=== PATIENT | female | born 1980 | race Caucasian/White ===

== ENCOUNTER 2023-03-07 07:46 | Outpatient (CLI) | payer OTHER, SELFPAY ==
--- NOTE | ~2023-03-07 | MM_ITS ---
EXAMINATION: MM screening loy BI w filipe HISTORY: Screening mammogram TECHNIQUE: Craniocaudal and mediolateral oblique 3-D tomosynthesis images were obtained and synthetic 2-D images were generated. CAD analysis was submitted and interpreted. COMPARISON: 03/17/2019 diagnostic right mammogram and limited right breast ultrasound examination, re ported negative BREAST PARENCHYMAL COMPOSITION: There are scattered areas of fibroglandular density. FINDINGS: A circumscribed 5.4 x 9 mm opacity is noted in the outer mid to lower right breast. Diagnos tic right mammogram and right breast ultrasound examination are recommended. Otherwise no suspicious mass, architectural distortion, malignant calcification, skin thickening or r etraction of either breast or other significant new or developing density of the right breast is note d. IMPRESSION: 1. New outer mid to lower right breast mass 2. Diagnostic right mammogram and right breast ultrasound examination are recommended BI-RADS Category 0: Incomplete: Needs additional imaging evaluation. Reviewed, dictated and finalized at location A. IMPRESSION: 1. New outer mid to lower right breast mass 2. Diagnostic right mammogram and right breast ultrasound examination are recom mended BI-RADS Category 0: Incomplete: Needs additional imaging evaluation.
== END 2023-03-07 07:47 | disposition home or self-care (01) ==
PROVIDERS: PCP Nurse Practitioner; Visit Provider Obstetrics & Gynecology
DX: Z12.31 Encounter for screening mammogram for malignant neoplasm of breast (principal); R92.8 Other abnormal and inconclusive findings on diagnostic imaging of breast
CPT/HCPCS: 77063; 77067

== ENCOUNTER 2023-03-22 13:16 | Outpatient (CLI) | payer OTHER, SELFPAY ==
--- NOTE | ~2023-03-22 | MMUS_ITS ---
EXAMINATION: MM diagnostic loy RT w filipe, US breast RT limited HISTORY: New mid to lower right breast reported on 03/07/2023 screening mammogram TECHNIQUE: Additional 3-D tomosynthesis images of right breast were performed and synthetic 2-D image s were generated. CAD analysis was submitted and interpreted. High resolution lower outer quadrant ri ght breast ultrasound was performed. COMPARISON: 03/07/2023 bilateral screening mammogram 03/17/2019 diagnostic right mammogram and lower outer quadrant right breast ultrasound FINDINGS: MAMMOGRAPHIC FINDINGS: An incompletely circumscribed approximately 5 x 8 mm opacity is noted at mid depth in the lower outer right breast (ML Tomosynthesis image 28/84). A similar opacity is suggested on MLO Tomosynthesis susan ge of right breast dated 03/17/2019. ULTRASOUND: 8:00 3 cm from nipple: 2.4 x 1.7 x 2.5 mm parallel circumscribed oval sonolucency, consistent with sm all cyst No suspicious mass or shadowing is detected. IMPRESSION: 1. Probably benign findings 2. 6 month diagnostic right mammogram follow-up is recommended, with ultrasound if required BI-RADS category 3, probably benign findings. Reviewed, dictated and finalized at location A. IMPRESSION: 1. Probably benign findings 2. 6 month diagnostic right mammogram follow-up is recommended, with ultrasound if required BI-RADS category 3, probably benign findings.
== END 2023-03-22 13:17 | disposition home or self-care (01) ==
LOC: ANHIMG 13:17
PROVIDERS: PCP Nurse Practitioner; Visit Provider Obstetrics & Gynecology
DX: R92.8 Other abnormal and inconclusive findings on diagnostic imaging of breast (principal)
CPT/HCPCS: 76642; 77061; 77065; G0279

== ENCOUNTER 2023-09-23 12:25 | Outpatient (CLI) | payer OTHER, SELFPAY ==
--- NOTE | ~2023-09-23 | MMUS_ITS ---
EXAMINATION: MM diagnostic loy RT w filipe, US breast RT limited HISTORY: Six-month follow-up of probably benign 03/22/2023 mammographic and sonographic findings TECHNIQUE: Full field and spot ML, MLO and CC 3-D tomosynthesis images of the right breast were perfo rmed and synthetic 2-D images were generated. CAD analysis was submitted and interpreted. High resolu tion right lower outer quadrant breast ultrasound was performed. COMPARISON: 03/22/2023 diagnostic right mammogram and Limited right breast ultrasound 03/07/2023 bilateral screening mammogram BREAST PARENCHYMAL COMPOSITION: There are scattered areas of fibroglandular density. FINDINGS: MAMMOGRAPHIC FINDINGS: There is a circumscribed approximately 4.8 x 8.5 mm opacity at mid depth in the lower outer quadrant right breast. No suspicious mass or architectural distortion, malignant calcification, skin thickening or retractio n of the right breast is noted otherwise. ULTRASOUND: 8:00 3 cm from nipple: Well-circumscribed 2 x 4.4 mm cyst 8:00 4 cm from nipple: 4.3 x 3.6 x 4.1 mm irregular hypoechoic area without internal vascularity, wit h suggestion of faint posterior shadowing. Ultrasound-guided biopsy is recommended. IMPRESSION: 1. 4.3 x 3.6 x 4.1 mm irregular hypoechoic area with faint posterior shadowing at right breast 8:00 p osition 4 cm from nipple 2. Ultrasound guided biopsy right breast 8:00 region is recommended BI-RADS category 4, suspicious findings. Dr. Baez telephoned the report an ultrasound-guided biopsy recommendation right breast 8:00 lesion on September 23, 2023 at 1500 hours to Jennifer Oconnell Reviewed, dictated and finalized at location A. IMPRESSION: 1. 4.3 x 3.6 x 4.1 mm irregular hypoechoic area with faint posterior shadowing at right breast 8:00 position 4 cm from nipple 2. Ultrasound guided biopsy right breast 8:00 region is recommended BI-RADS category 4, suspicious findings. Dr. Baez telephoned the report an ultrasound-guided biopsy recommendation right breast 8:00 lesion on September 23, 2023 at 1500 hours to Jennifer Oconnell
== END 2023-09-23 12:26 | disposition home or self-care (01) ==
PROVIDERS: PCP Nurse Practitioner; Visit Provider Obstetrics & Gynecology
DX: R92.8 Other abnormal and inconclusive findings on diagnostic imaging of breast (principal)
CPT/HCPCS: 76642; 77061; 77065; G0279

== ENCOUNTER 2023-11-13 08:40 | Outpatient (CLI) | payer OTHER, SELFPAY ==
--- NOTE | ~2023-11-13 | MMUS_ITS ---
MM post biopsy diagnostic RT, US breast biopsy RT w image EXAMINATION: US GUIDED NEEDLE BIOPSY WITH VACUUM ASSISTANCE DATE: 11/13/2023 10:18 CDT INDICATION: Right breast mass seen on recent examination. Ultrasound-guided core biopsy is requested to evaluate for malignancy. TECHNIQUE AND FINDINGS: The risks and potential benefits of the procedure were discussed with the patient, and written inform ed consent was obtained. After sterile preparation of the right breast, 1% lidocaine was utilized fo r local anesthesia. 1% lidocaine with epinephrine was used for deep anesthesia. A 10G vacuum-assisted biopsy gun needle was advanced through to the outer edge of the region of inter est from a lateral approach utilizing sonographic guidance. A total of 4 tissue core samples were ob tained through the lesion. An Inrad tissue marker clip was then placed at the biopsy site. Hemostasi s was achieved. The patient tolerated procedure well and there was no evidence of immediate complication. The patien t was given verbal instructions partly is from the department. Right breast mammograms to document t issue marker clip placement. The tissue samples were submitted to surgical pathology for histologic a nalysis. IMPRESSION: 1. Successful ultrasound-guided vacuum-assisted biopsy of right breast mass with tissue marker place ment. Please refer to pathology report for histologic analysis. Reviewed, dictated and finalized at location B. IMPRESSION: 1. Successful ultrasound-guided vacuum-assisted biopsy of right breast mass wi th tissue marker placement. Please refer to pathology report for histologic tanmay lysis.
== END 2023-11-13 08:41 | disposition home or self-care (01) ==
PROVIDERS: PCP Nurse Practitioner; Visit Provider Surgery
DX: N63.10 Unspecified lump in the right breast, unspecified quadrant (principal); R92.8 Other abnormal and inconclusive findings on diagnostic imaging of breast
CPT/HCPCS: 19083; 77065; 88305; A4648

== ENCOUNTER 2024-04-27 15:06 | Outpatient (CLI) | payer OTHER, SELFPAY ==
--- NOTE | ~2024-04-27 | MM_ITS ---
EXAMINATION: MM screening loy BI w filipe HISTORY: Screening TECHNIQUE: Craniocaudal and mediolateral oblique 3-D tomosynthesis images were obtained and synthetic 2-D images were generated. CAD analysis was submitted and interpreted. COMPARISON: Comparison to multiple prior studies sequentially, with oldest reviewed study dated 02/25. BREAST PARENCHYMAL COMPOSITION: Not dense: There are scattered areas of fibroglandular density. FINDINGS: There is no evidence of suspicious mass, calcification, or architectural distortion to sugg est malignancy in either breast. There has been no suspicious interval change. IMPRESSION: 1. No mammographic evidence of malignancy. 2. Recommend routine screening mammography in one year. BI-RADS Category 1: Negative Reviewed, dictated and finalized at location B. E SPOOLER
== END 2024-04-27 15:07 | disposition home or self-care (01) ==
LOC: ANHIMG 15:09
PROVIDERS: PCP Surgery; Visit Provider Obstetrics & Gynecology
DX: Z12.31 Encounter for screening mammogram for malignant neoplasm of breast (principal)
CPT/HCPCS: 77063; 77067

== ENCOUNTER 2024-10-22 18:41 | Emergency (ER) | payer OTHER, SELFPAY ==
--- OUTSIDE RECORDS SUMMARY | 2024-10-22 18:44 | XMS_ITS | Clinical Summary ---
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
[2024-10-22 18:49] VITALS: BP 142/77; PULSE 101; RESP 16; TEMP 36.8; O2SAT 100
--- NOTE | 2024-10-22 19:07 | ED_ITS ---
HPI - Wound/Laceration General Chief Complaint: Wound/Laceration Stated Complaint: insect bite Time Seen by Provider: 10/22/24 18:50 Source: patient and RN notes reviewed Mode of arrival: ambulatory Limitations: no limitations History of Present Illness HPI narrative: 44-year-old female presents Express Care complaining of redness and swelling above her left breast. Patient said she notes at this morning. Patient is unsure she was bit by a bug her was however it occurred. Patient does report she did scratching at the redness this morning. Since then the patient says that the redness is worse along with tenderness to the area. Patient denies any masses to her breast and recently had an abnormal mammogram of her right breast last year but was informed that it was unchanged and there is no suspicious fi ndings. Patient reports tactile fevers and report purulent discharge this morning. Patient reports feeling not and flushed. Patient took Motrin this morning for her fever and pain. Patient denies any chest pressure, shortness of breath, or any other symptoms. Patient denies any significant past medical history. Related Data Home Medications ?Medication ?Instructions ?Recorded ?Confirmed ?Last Taken ?Type levonorgestrel 20.4 mcg/24 hr (up 1 device intrauterine ONCE 09/30/23 Unknown History to 8 yrs) 52 mg intrauterine device (Liletta) tirzepatide 5 mg/0.5 mL 5 mg subcut WEEKLY 10/22/24 10/22/24 Unknown History subcutaneous pen injector (Mounjaro) Allergies Allergy/AdvReac Type Severity Reaction Status Date / Time No Known Allergies Allergy Mild Verified 10/22/24 18:52 Review of Systems Review of Systems: CONSTITUTIONAL: Denies fever, chills, or sweats. EYES: Denies visual changes, redness, or discharge. ENT: Denies rhinorrhea, congestion, sore throat, or otalgia. CARDIOVASCULAR: Denies chest pain, palpitations, or edema. RESPIRATORY: Denies cough or dyspnea. GASTROINTESTINAL: Denies abdominal pain, nausea, vomiting, or diarrhea. GENITOURINARY: Denies dysuria or hematuria. SKIN: Denies rash or itching. Positive for wound. MUSCULOSKELETAL: Denies back pain, joint pain, or myalgia. NEUROLOGIC: Denies headache, numbness, or weakness. PSYCHIATRIC: Denies anxiety or depression. All other systems reviewed are negative, except as documented in HPI. [facility] Family History Family History Father Hypertension Mother Family history of malignant neoplasm of breast in first degree relative Social History Social History Smoking status: Never smoker Alcohol intake: current Substance use: never Substance use type: does not use Do You Feel Safe in your Home?: Yes Lack of Transportation: No Lack of Food: Never True Current Housing: I Have Housing Concerned About Future Housing: No Difficulty Paying Gas/Electric Bills: No Difficulty Paying for Meds: No Currently Unemployed: No Education: Master's Degree or Higher Difficulty w/ Childcare or Family Care: No Comments At the time of my signature, I reviewed and agree with the nursing past medical, surgical, social, and family history. There is no relevant family history pertinent to the patient complaint. Exam Narrative: GENERAL: This is a well-nourished, well-developed adult, in no apparent distress. They are non ill-appearing, nontoxic appearing. Patient afebrile. HEAD: normocephalic, atraumatic. EYES: Sclera clear/white. Conjunctiva normal. Vision is grossly intact. Extraocular movements intact EARS: External ears normal. Hearing grossly intact. NOSE: External nose normal THROAT: Mucous membranes moist, NECK: Neck supple CARDIOVASCULAR: Regular rate and rhythm RESPIRATORY: Respiratory rate normal, respiratory effort nonlabored, no respir atory distress GASTROINTESTINAL: Abdomen soft, non-tender, nondistended. Bowel sounds are active. No hepato-splenomegaly, or palpable masses. No guarding. SKIN: Left chest wall: Area of erythema and induration with slight bruising above the left breast. Mild tenderness to palpation to area. Area of induration approximately 3 cm by 2 cm. No area of fluctuance or exudate. Chest wall appears flushed and blanchable. No tenderness to the blanchable areas. No palpable masses near the area. NEURO: awake, alert, and oriented to person, place and time. There were no obvious focal neurologic abnormalities. EXTREMITIES: No joint tenderness, effusion, or edema noted. Course Course Emergency Course: Portions of this record may have been created with voice recognition software Level of Care: Express Care Visit Vital Signs Vital signs: Vital Signs Temperature 98.2 F 10/22/24 18:49 Pulse Rate 101 H 10/22/24 18:49 Respiratory Rate 16 10/22/24 18:49 Blood Pressure 142/77 H 10/22/24 18:49 Pulse Oximetry 100 10/22/24 18:49 Oxygen Delivery Room Air 10/22/24 18:49 Temperature 98.2 F 10/22/24 18:49 Pulse Rate 101 H 10/22/24 18:49 Respiratory Rate 16 10/22/24 18:49 Blood Pressure 142/77 H 10/22/24 18:49 Pulse Oximetry 100 10/22/24 18:49 Oxygen Delivery Room Air 10/22/24 18:49 Reviewed MDM - Wound/Laceration MDM Narrative Medical decision making narrative: Likely patient has developed a cellulitis. Will treat empirically with cephalexin. Advised patient if symptoms do not improve to have close follow-up with PCP given her history of abnormal mammograms. Discussed physical exam findings. Advised supportive measures and signs/symptoms to go to the ER. Pt is appropriate for outpt treatment and f/u. Differential Diagnosis Differential diagnosis: Likely other (Cellulitis, abscess, insect bite) Critical Care Time Critical Care Time Critical Care Time: No Discharge Plan Discharge Clinical Impression: Cellulitis of chest wall Patient Disposition: Home Condition: Stable Instructions: Antibiotic Form, Cellulitis (ED) Additional Instructions: Clean with soap and water only; Avoid using alcohol and peroxide. May take Tylenol or ibuprofen as needed for pain or fevers. Take antibiotic until it's gone. Please schedule a follow up visit with your personal physician for further evaluation and treatment within 3-5days OR if your symptoms persist, change or worsen significantly before you can contact your personal physician then please, without delay, go to the emergency department for further evaluation. Patient Language: Marshallese Prescriptions: New cephalexin 500 mg capsule 500 mg PO Q6H 10 Days Qty: 40 0RF No Action Mounjaro 5 mg/0.5 mL pen injector 5 mg subcut WEEKLY Liletta 20.4 mcg/24 hr (8 yrs) 52 mg intrauterine device 1 device intrauterine ONCE Rx Instructions: as a single dose Follow-up/Referrals: Vicki,MARSHA Lopez [Primary Care Provider] - Time of Disposition: 19:06
== END 2024-10-22 19:09 | disposition home or self-care (01) ==
PROVIDERS: PCP Nurse Practitioner
DX: L03.313 Cellulitis of chest wall (principal)
CPT/HCPCS: 99213; G0463

== ENCOUNTER 2024-10-25 09:39 | Emergency (ER) | payer OTHER, SELFPAY ==
--- OUTSIDE RECORDS SUMMARY | 2024-10-25 09:42 | XMS_ITS | Clinical Summary ---
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
[2024-10-25 09:45] VITALS: BP 122/68; PULSE 110; RESP 18; TEMP 36.7; O2SAT 100
--- NOTE | 2024-10-25 09:46 | ED.SKABFB ---
HPI - Skin/Abscess/Foreign Bdy General Chief complaint: Skin/Abscess/Foreign Body Stated complaint: Rash Time Seen by Provider: 10/25/24 09:40 Patient presents to Express Care with complaints itchy rash diffusely over her body but began yesterday. Patient noted 2 days ago she started taking Bactrim after primary care physician changed to this problem cephalexin. Patient reports she was a value several days before this for a bite to left chest wall / breast. Unsure what happened in her that the area was significantly painful red and swollen. Patient reports this area does look slightly better but still very painful and red. Patient does report last night also noted a fever. Denies chest pain, shortness for breath, or drainage from the bite area. Related Data Home Medications ?Medication ?Instructions ?Recorded ?Confirmed ?Last Taken ?Type levonorgestrel 20.4 mcg/24 hr (up 1 device intrauterine ONCE 09/30/23 10/25/24 Unknown History to 8 yrs) 52 mg intrauterine device (Liletta) tirzepatide 5 mg/0.5 mL 5 mg subcut WEEKLY 10/22/24 10/25/24 Unknown History subcutaneous pen injector (Mounjaro) Allergies Allergy/AdvReac Type Severity Reaction Status Date / Time sulfamethoxazole (From Allergy Intermediate Hives Verified 10/25/24 10:01 Bactrim) trimethoprim (From Bactrim) Allergy Intermediate Hives Verified 10/25/24 10:01 Review of Systems Constitutional: Constitutional: Reports as per HPI, Denies chills, Denies fatigue and Reports fever(s) Eyes: Eyes: Reports no additional eye complaints ENT: Reports system reviewed and no additional complaints, except as documented Cardiovascular: Cardiovascular: Reports no additional cardiovascular complaints Respiratory: Respiratory: Reports no additional respiratory complaints Gastrointestinal: Gastrointestinal: Reports no additional gastrointestinal complaints Genitourinary: Genitourinary: Reports no additional female genitourinary complaints Musculoskeletal: Musculoskeletal: Reports no additional musculoskeletal complaints Integumentary/Breasts: Skin/Breast: Reports as per HPI, Reports breast pain, Reports erythema and Reports rash Comments: bite to the left chest wall/left breast with redness, swelling and pain Neurologic: Reports as per HPI, Denies dizziness and Denies headache(s) [facility]LY [facility], [facility] Family History Family History Father Hypertension Mother Family history of malignant neoplasm of breast in first degree relative Social History Social History Smoking status: Never smoker Alcohol intake: current Substance use: never Substance use type: does not use Do You Feel Safe in your Home?: Yes Lack of Transportation: No Lack of Food: Never True Current Housing: I Have Housing Concerned About Future Housing: No Difficulty Paying Gas/Electric Bills: No Difficulty Paying for Meds: No Currently Unemployed: No Education: Master's Degree or Higher Difficulty w/ Childcare or Family Care: No Exam Const: General: healthy appearing and no acute distress; No diaphoretic or ill appearing Nutritional Appearance: well nourished Orientation/consciousness: patient oriented x3 Neck: Neck: no lymphadenopathy Chest: Chest palpation & inspection: tenderness (left chest wall, left breast ) Resp: Effort & Inspection: normal respiratory effort Auscultation: clear to auscultation bilaterally Cardio: Rate: tachycardic Rhythm: regular rhythm Skin: Rashes: rash noted Other: diffuse papular clustered rash noted diffusely. area above left breast with ecchymosis and healing puncture wound. No active drainage or crusting noted. Neuro: General: patient oriented x3 Speech: normal speech Gait exam (Neuro): Normal gait present Extrem: General: normal to inspection, no clubbing, cyanosis or edema, no pedal edema and no edema Psych: Mental Status: mental status grossly normal Affect: normal affect Attitude: cooperative Course Course Level of Care: Express Care Visit Vital Signs Vital signs: Vital Signs Temperature 98.1 F 10/25/24 09:45 Pulse Rate 110 H 10/25/24 09:45 Respiratory Rate 18 10/25/24 09:45 Blood Pressure 122/68 10/25/24 09:45 Pulse Oximetry 100 10/25/24 09:45 Oxygen Delivery Room Air 10/25/24 09:45 Temperature 98.1 F 10/25/24 09:45 Pulse Rate 110 H 10/25/24 09:45 Respiratory Rate 18 10/25/24 09:45 Blood Pressure 122/68 10/25/24 09:45 Pulse Oximetry 100 10/25/24 09:45 Oxygen Delivery Room Air 10/25/24 09:45 MDM - Skin/Abscess/Foreign Bdy MDM Narrative Medical decision making narrative: Rash likely Bactrim/ sulfa allergy. Will stop cephalexin and Bactrim changed to doxycycline and add steroids with antihistamines. Discharge instructions reviewed with patient, as well as provided in writing per nursing staff. The instructions also include specific and strict return/GO TO THE ER as well as f/u information. All questions have been answered, and the patient deny any further questions with discharge and discharge plan. Differential Diagnosis Differential diagnosis: Likely urticaria, allergic reaction to drug, cellulitis, insect bites and contact dermatitis Medical Records Attestation: I reviewed the patient's medical records. Discharge Plan Discharge Clinical Impression: Allergic drug rash due to sulfonamide, Insect bite, venomous Patient Disposition: Home Condition: Stable Instructions: Antibiotic Form, Cellulitis (ED), Insect Bite or Sting (ED), General Allergic Reaction (ED) Additional Instructions: Stop taking the Bactrim let your pharmacy note to list this as an allergy. Start the doxycycline and take the steroids as directed. May use Claritin /Vivian / Zyrtec and Benadryl or Pepcid as needed during continue warm compresses to the area and keep a very close eye on this. Return to the ER if symptoms worsen. Patient Language: Egyptian Prescriptions: New doxycycline monohydrate 100 mg capsule 100 mg PO BID Qty: 20 0RF prednisone 10 mg tablet 10 mg PO DIRECTED Qty: 18 0RF Rx Instructions: Take 3 tablets for 3 days, 2 tablets for 3 days, 1 tablet for 3 days Discontinued cephalexin 500 mg capsule 500 mg PO Q6H 10 Days Qty: 40 0RF No Action Mounjaro 5 mg/0.5 mL pen injector 5 mg subcut WEEKLY Liletta 20.4 mcg/24 hr (8 yrs) 52 mg intrauterine device 1 device intrauterine ONCE Rx Instructions: as a single dose Follow-up/Referrals: Vicki,MARSHA Lopez [Primary Care Provider] - Time of Disposition: 10:03
== END 2024-10-25 10:04 | disposition home or self-care (01) ==
PROVIDERS: Emergency Provider Nurse Practitioner Family; PCP Nurse Practitioner
DX: L27.0 Generalized skin eruption due to drugs and medicaments taken internally (principal); T37.0X5A Adverse effect of sulfonamides, initial encounter; T63.481A Toxic effect of venom of other arthropod, accidental (unintentional), initial encounter
CPT/HCPCS: 99213; G0463

== ENCOUNTER 2025-04-28 14:02 | Outpatient (CLI) | payer OTHER, SELFPAY ==
--- NOTE | ~2025-04-28 | MM_ITS ---
EXAMINATION: MM screening loy BI w filipe HISTORY: Screening TECHNIQUE: Craniocaudal and mediolateral oblique 3-D tomosynthesis images were obtained and synthetic 2-D images were generated. CAD analysis was submitted and interpreted. COMPARISON: Comparison to multiple prior studies sequentially, with oldest reviewed study dated 03/07/2023. BREAST PARENCHYMAL COMPOSITION: Dense: The breasts are heterogeneously dense, which may obscure small masses FINDINGS: There is no evidence of suspicious mass, calcification, or architectural distortion to suggest malignancy in either breast. There has been no suspicious interval change. IMPRESSION: 1. No mammographic evidence of malignancy. 2. Recommend routine screening mammography in one year. BI-RADS Category 1: Negative Reviewed, dictated and finalized at location I. ELING RAMPMAN
--- OUTSIDE RECORDS SUMMARY | 2025-04-28 15:20 | XMS_ITS | Clinical Summary ---
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
--- OUTSIDE RECORDS SUMMARY | 2025-04-28 15:20 | XMS_ITS | Clinical Summary ---
Author Organization [facility] Address [address] [place] [id number] Care Team Providers Care Oliving Machine Operator Name Role Phone Brittney Cohen NP Primary Care Provider [phone] Allergies Active Allergy Reactions Criticality Noted Date Comments Sulfamethoxazole-Trimethop rim Rash Medium 11/03/2024 Rash led to skin itching and peeling. Medications levonorgestrel (LILETTA, 52 MG,) 19.5 MCG/DAY IUD 1 Intra Uterine Device by Intrauterine route once. Active Tirzepatide-Rafael ght Management 7.5 MG/0.5ML Solution 4 Active doxycycline monohydrate 100 MG capsule Take 1 capsule (100 mg total) by mouth 2 (two) times daily. 5 Active Active Problems Problem Noted Date Diagnosed Date Overweight (BMI 25.0-29.9) 08/11/2024 Assessment & Plan (08/11/2024 2:00 PM CDT): Doing well with tirzepatide Continue following a healthy lifestyle. Resolved Problems Problem Noted Date Diagnosed Date Resolved Date Ventricular ectopic beats 12/29/2020 Immunizations Immunization Administration Dates Next Due Dtap (Generic) 12/30/1986, 4,1982,1982,1982 Flucelvax 6 Months+ (Prefill ed Syringe) 03/07/2022,03/01/2020,04/29/2019 HPV GARDASIL 9-VALENT 01/23/2024,08/26/2023,05/28 Hepatitis B 12/29/2020,04/24/1993,10/21/1992 Hib (Generic) 03/05/1985 Influenza (Generic) 03/30/2024,,03/03/2018,2016,03/01/2016 Influenza Adult (Generic) 06/14/2023,03/01/2020, 04/29/2019 MMR (MMRII) 11/02/1991,06/05/1983 PFIZER COVID-19 BIVALENT (12 +) mRNA, LNP-S, PF, 30 MCG/0.3 ML DOSE 03/07/2022 Polio Opv (Generic) 12/30/1986, 4,1982,1982 Td, Adsorbed, Preservative F ree, Adult Use, Lf Unspecified 01/05/2009,09/20/1997 Tdap (Adacel) 12/29/2020 Family History Medical History Relation Comments Hypertension Father Breast Cancer Mother Cancer Mother 1995 and 2008 Hypertension Mother Stroke Paternal Grandfather Relation Status Comments Father Mother Paternal Grandfather Social History Tobacco Use Types Packs/Day Years Used Date Smoking Tobacco: Never Smokeless Tobacco: Never Tobacco Cessation:Counseling Given: Not Answered Alcohol Use Standard Drinks/Week Comments Yes 8.3 (1 standard drink = 0.6 oz p ure alcohol) PHQ-2 Answer Date Recorded Patient Health Questionnaire-2 Score 0 08/11/2024 Comments No Sex and Gender Information Value Date Recorded Sex Assigned at Female 10/23/2024 9:51 AM CDT 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 Gender Identity Female 10/23/2024 9:51 AM CDT Sexual Orientation Not on file Last Filed Vital Signs Vital Sign Reading Time Taken Comments Blood Pressure 110/70 11/03/2024 11:06 AM CDT Pulse 75 11/03/2024 11:06 AM CDT Temperature 36.7 C (98.1 F) 11/03/2024 11:06 AM CDT Respiratory Rate 16 11/03/2024 11:06 AM CDT Oxygen Saturation 98% 11/03/2024 11:06 AM CDT Inhaled Oxygen Concentration - - Weight 72.1 kg (159 lb) 11/03/2024 11:06 AM CDT Height 162.6 cm (5' 4) 11/03/2024 11:06 AM CDT Body Mass Index 27.29 11/03/2024 11:06 AM CDT Plan of Treatment Health Maintenance Due Date Last Done Comments Cervical Cancer Screening Pap Smear (Age 30 to 64) Every 3 Years 1982 Hepatitis C 2000 COVID-19 Vaccine ( season) 2025 03/30/2024, 06/14/2023, 03/07/2022, Additional history exists Influenza Adult (#1) 2025 03/30/2024, 06/14/2023, 03/07/2022, Additional history exists Mammogram Screening 03/22/2025 03/22/2023, Annual Physical 08/11/2025 08/11/2024, 12/29/2020 Cervical Cancer Screening Pap with HPV Testing (Age 30 to 64) Every 5 Years 12/25/2028 12/26/2023 Cervical Cancer Screening with HPV 12/25/2028 DTaP, Tdap and Td Vaccines (7 - Td or Tdap) 12/29/2030 12/29/2020, 01/05/2009, 09/20/1997, Additional history exists Hepatitis B Vaccines Completed 12/29/2020, 04/24/1993, 10/21/1992 HPV Vaccines Completed 01/23/2024, 04/0 05/2023, 06/15/2023 PHQ-2 (Physician [place]) Completed 08/11/2024 Hepatitis A Vaccines Aged Out No long er eligible based on patient's age to complete this topic Meningococcal B Vaccine Aged Out No l onger eligible based on patient's age to complete this topic Meningococcal Vaccine Aged Out No ivy anu eligible based on patient's age to complete this topic Pneumococcal Vaccine: Pediatrics (0 to 5 Years) and At-Risk Patients (6 to 49 Years) Aged Out No longer eligible based on patient's age to complete this topic RSV Immunizations Under 20 Months Aged Out No longer eligible based on patient's age to complete this topic Procedures Procedure Name Priority Date/Time Associated Diagnosis Comments OUTSIDE CYTOPATH CERV/VAG IN TERPRET (PAP) 12/26/2023 MAMMOGRAM GENERIC (SCAN ORDER) 03/22/2023 from Last 3 Months or Most Recently Relevant to Health Maintenance Results * PAP SMEAR WITH HPV (12/26/2023) 12/26/2023 us [facility] Scanned SCANNING Final Resu lt * MAMMOGRAM GENERIC (03/22/2023) Anatomical Region Laterality Modality Other 03/22/2023 us [facility] Scanned SCANNING Final Resu lt from Last 3 Months or Most Recently Relevant to Health Maintenance Insurance [facility] Care Teams Oliving Machine Operator Relationship Specialty Start Date End Date Brittney Cohen NP [address] [place] [address] PCP - General NURSE PRACTITIONER 12/15/20
== END 2025-04-28 14:03 | disposition home or self-care (01) ==
LOC: ANHFOHIMG 14:05
PROVIDERS: PCP Surgery; Visit Provider Obstetrics & Gynecology
DX: Z12.31 Encounter for screening mammogram for malignant neoplasm of breast (principal)
CPT/HCPCS: 77063; 77067